=== PATIENT | female | born 1960 | race Caucasian/White ===

== ENCOUNTER → 2018-06-05 | Outpatient (CLI) | payer OTHER | END | disposition home or self-care (01) | LOC: RADPV 09:44 | PROVIDERS: ATTEND Orthopaedic Surgery | DX: S82.222D Displaced transverse fracture of shaft of left tibia, subsequent encounter for closed fracture with routine healing (principal); S82.422D Displaced transverse fracture of shaft of left fibula, subsequent encounter for closed fracture with routine healing; M85.88 Other specified disorders of bone density and structure, other site; M79.89 Other specified soft tissue disorders; X58.XXXD Exposure to other specified factors, subsequent encounter ==